=== PATIENT | male | born 1960 | race Caucasian/White ===

== ENCOUNTER → 2022-11-09 | Day surgery (SDC) | payer OTHER ==
[2022-11-05 10:03] VITALS: BMI 46.6
== END | disposition home or self-care (01) ==
LOC: MRI 09:31
PROVIDERS: ATTEND Otolaryngology Otolaryngic Allergy
DX: H91.20 Sudden idiopathic hearing loss, unspecified ear (principal); Z53.8 Procedure and treatment not carried out for other reasons; Z79.82 Long term (current) use of aspirin; Z79.84 Long term (current) use of oral hypoglycemic drugs; Z79.899 Other long term (current) drug therapy